=== PATIENT | male | born 1950 | race Two or more races ===

== ENCOUNTER → 2024-03-20 | Outpatient (CLI) | payer OTHER, MEDICAID, SELFPAY ==
[2024-03-20 10:43] LABS: Basophils # (Auto) 0.1 Thou/mm3 (0.0-0.2); Basophils % (Auto) 1 % (0-2.5); Eosinophils # (Auto) 0.2 Thou/mm3 (0.0-0.5); Eosinophils % (Auto) 3 % (0-10); Hematocrit 32.4 % (41.0-53.0); Hemoglobin 10.4 g/dL (13.5-16.0); Immature Granulocytes % (Auto) 1 % (0-0); Immature Granulocytes Auto 0.07 Thou/mm3 (0.00-0.00); Lymphocytes # (Auto) 1.3 Thou/mm3 (1.0-4.8); Lymphocytes % (Auto) 17 % (10-50); Mean Corpuscular HGB Conc 32.1 g/dl (31.0-37.0); Mean Corpuscular Hemoglobin 31.1 pg (25.0-35.0); Mean Corpuscular Volume 97 fL (80-100); Monocytes # (Auto) 1.1 Thou/mm3 (0.0-0.8); Monocytes % (Auto) 14 % (0-12); Neutrophils % (Auto) 65 % (37-80); Nucleated Red Blood Cell % 0 /100 WBC (0); Platelet Count 314 Thou/mm3 (140-440); RDW Standard Deviation 55.9 fL (35.1-43.9); Red Blood Count 3.34 Miln/mm3 (4.50-5.90); White Blood Count 7.7 Thou/mm3 (3.8-10.6)
[2024-03-20 10:56] LABS: Glucose Estimated Average 103 mg/dL (80-131); Hemoglobin A1C 5.2 % Hgb (4.8-6.0)
[2024-03-20 11:19] LABS: Anion Gap 3 (7-16); BUN/Creatinine Ratio 11 Ratio (12-20); Blood Urea Nitrogen 9 mg/dL (9-23); Calcium 8.7 mg/dL (8.3-10.6); Carbon Dioxide 28.8 mMol/L (20.0-31.0); Chloride 104 mMol/L (98-107); Creatinine (Component) 0.8 mg/dL (0.6-1.3); Glucose 89 mg/dL (74-106); Osmolality,Calculated 269 (275-295); Potassium 4.2 mMol/L (3.4-5.1); Sodium 136 mMol/L (136-145); eGFR > 60 See Note
== END | disposition home or self-care (01) ==
PROVIDERS: PCP Physician Assistant; Referring Provider Physician Assistant; Visit Provider Physician Assistant
DX: R73.03 Prediabetes (principal); J44.9 Chronic obstructive pulmonary disease, unspecified; I10 Essential (primary) hypertension
CPT/HCPCS: 36415; 80048; 83036; 85025

== ENCOUNTER → 2024-04-04 | Outpatient (CLI) | payer OTHER, MEDICAID, SELFPAY ==
--- NOTE | 2024-04-04 09:30 | XR_ITS ---
EXAMINATION: PET/CT FUSION SKULL TO THIGH EXAM DATE AND TIME: April 04, 2024 1026 hours Comparison November 16, 2023 INDICATIONS: Diagnosis head and neck cancer post treatment restaging CTDI:vol (mGy) 4.02 DLP: (mGycm) 417.64 PROCEDURE: 16.09 mCi FDG was administered intravenously To allow for distribution and uptake of radiotracer, the patient was allowed to rest quietly in a shielded room. Imaging was performed on an integrated 16-slice PET/CT scanner, with scanning from the skull base to the mid thigh. Serum blood glucose at the time of the injection was measured 97 mg/dL. CT scanning was performed without oral or intravenous contrast material. FINDINGS: Head and Neck: Intensely hypermetabolic laryngeal mass on November 16, 2023 is not currently depicted There is nonspecific week hypermetabolic activity prevertebral at this site and in the posterior larynx Chest: 3 mm, 2 mm, 2 mm pulmonary nodules left upper lobe, 4 mm pulmonary nodule right upper lobe not clearly visualized on the prior PET CT scan Abdomen and Pelvis: There is no anup hypermetabolism in retroperitoneal or pelvic chains. The spleen is normal in size and FDG avidity. Musculoskeletal: Marrow uptake is within normal range. IMPRESSION: Intensely hypermetabolic laryngeal mass on the PET CT scan November 16, 2023 is not clearly depicted currently, however, recommend MRI soft tissue neck follow-up pre and postcontrast Non hypermetabolic pulmonary nodules as above, recommend high-resolution CT chest without contrast follow-up
== END | disposition home or self-care (01) ==
LOC: CDIM 09:13
PROVIDERS: Referring Provider Radiology Therapeutic Radiology; Visit Provider Radiology Therapeutic Radiology
DX: R91.8 Other nonspecific abnormal finding of lung field (principal); C32.8 Malignant neoplasm of overlapping sites of larynx
CPT/HCPCS: 78815; A9552

== ENCOUNTER 2024-04-11 11:33 | Outpatient (RCR) | payer OTHER, MEDICAID, SELFPAY ==
--- NOTE | 2024-04-11 13:49 | CTCFLWUP_ITS ---
Patient: ROSENDO GARCIA : 1950 Page 2 of 2 FOLLOW UP NOTE DATE OF SERVICE: 04/11/2024 NAME: ROSENDO GARCIA ACCOUNT: [id number] : 1950 AGE: 74 REASON FOR VISIT: Follow up INTERVAL HISTORY: Rosendo Garcia is a 74-year-old SPA speaking male with enlarged prostate has the following oncology history. Patient had a left nephrectomy done about 14 years ago at [facility] for kidney cancer. 09/20/2023:: A CT scan of the chest without contrast was obtained to evaluate the cause for coughing a few months duration. Patient has history of 40 pack year smoking. 09/29/2023: Mr. Garcia was seen here at [facility] emergency room because of shortne ss of breath and difficulty swallowing of few days duration. a CT scan of the soft tissue of the nec k with contrast was obtained was obtained CT scan of the neck showed a large soft tissue laryngeal mass Mr. Garcia was transferred to [facility] due to lack of ENT services here in [place]. 09/29/2023: Mr. Garcia had an awake tracheostomy and direct laryngoscopy with biopsies. During the hospital stay at [facility] patient had Chemo-Port placed as well as a PEG tube placement in ant icipation of chemoradiation therapy. HIV test was done. It came back positive. 10/07/2023: CT scan of the neck and chest abdomen pelvis 11/06/2023: Cocci serology positive. 11/12/2023: Mr. Garcia is started on Diflucan 11/16/2023: PET/CT scan 11/21/2023: Mr. Garcia is started on antiretroviral therapy with Biktarvy. 12/04/2023: Mr. 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 Currently on chemoradiation with Taxol and carboplatin as chemo sensitizing agents (12/04/2023??) S/p tracheostomy placement, PEG tube as well as Chemo-Port placement. 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 [id number] smoking history BPH. Newly identified HIV positivity. Started on antiretroviral therapy on 11/21/2023 Left nephrectomy for renal cell carcinoma 14 years ago at [facility]. Serum creatinine 0.9, EGFR more than 60, creatinine clearance 62.7 on 11/06/2023. DATE OF DIAGNOSIS: 09/30/2023 STAGE/TNM: Stage 2 ?T2NOMO TREATMENT HISTORY: Care?Plan Start?Date Cycle Day Intent CISplatin?40?mg/m*2?+?Radiation?Therapy?-?Primary,?Adj,?Rec?#2 10/30/2023 1 7 Palliative Taxol?Carbo?wkly?with?xrt 12/04/2023 1 7 Curative?(primary) OTHER MEDICAL HISTORY/CONDITIONS: SCC larynx - dx 09/30/23 RCC - dx 10 yrs ago HIV Positive Anemia BPH Depression Tracheostomy - 09/30/23 PEG tube placement and PC placemen 10/07/23t Left nephrectomy - 10 yrs ago Repair right tibia/fibula fx - 30 yrs ago ?Clone Other Med Hx? FAMILY HISTORY: Cancer?History:?Denies Patient?denies?family?cancer?history. ?Clone Family Hx? 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 MEDICATIONS: 1. albuterol sulfate - 90 mcg/actuation 2 Puff(s) Every 6 Hours 2. svfaybixg-khpdapup-wfptghb ala - 50-200-25 mg 1 tab Daily 3. Biktarvy - 50-200-25 mg 1 tab Daily 4. Centrum Men - 8 mg iron- 200 mcg-600 mcg 1 tab Daily 5. doxazosin - 2 mg Twice a Day 6. fluconazole - 200 mg 2 tab Daily 7. levocetirizine dihydrochloride - 5 mg Daily 8. Lidocaine Viscous - 2 % 10 mL every 4-6 hrs as needed 9. Sulfamethoprim DS - 800-160 mg 1 tab As directed 10. tramadol - 50 mg Four times a day 11. Vitamin D3 - 2,000 unit 1 Capsule Daily?Palabra Meds? Medications Last Reconciled by Nadine Cobian MA on 04/11/2024 ALLERGIES: No Known Drug Allergies REVIEW OF SYSTEMS: A complete 14-point review of systems was performed and is negative except as noted in interval histo ry. PHYSICAL EXAMINATION:?CloneBlock PE? VITAL SIGNS: Temperature?98, B/P?113/71, Oxygen?Saturation?99% Weight?137.6?lbs PAIN: 0 - No pain ECOG Performance Status: 2 - Symptomatic; ambulatory; capable of self-care; >50% of waking hrs. not i n bed EYE: Conjunctivae is white MOUTH: Oral cavity is moist Tracheostomy in place. Patient also has PEG tube and Chemo-Port. CHEST: Clear to auscultation. No wheezes or rales audible. CARDIAC: Rhythm regular, no murmurs or gallops present. ABDOMEN: Soft. No hepatomegaly. No splenomegaly. EXTREMITIES: No pedal edema or cyanosis. LABORATORY DATA: I have personally reviewed and interpreted each of the patient?s relevant lab tests, abnormal finding s are below: Date 03/20/24 ??WHITE?BLOOD?COUNT?(Thou/mm3) 7.7 ??RED?BLOOD?COUNT?(Miln/mm3) 3.34?L ??HEMOGLOBIN?(gm/dl) 10.4?L ??HEMATOCRIT?(%) 32.4?L ??PLATELET?COUNT?(Thou/mm3) 314 ??NEUTROPHILS?%,?AUTO?(%) 65 ??LYMPH?%,?AUTO?(%) 17 ??NEUTROPHILS,?AUTO?(Thou/mm3) 5.0 IMPRESSION/PLAN: #1 stage lll'lT3, ND, ND?) squamous cell carcinoma ofthe larynx ([id number]). PET/CT scan negative for metastatic disease. Treated with concurrent chemoradiation Advised to continue smoking cessation Advised to follow-up with ENT Advised to follow-up with speech therapy Referral to occupational medicine for rehabilitation Ordered tracheostomy reversal as well as PEG tube removal Reviewed PET CT scan which do not show any hypermetabolism Will get repeat CT scan of the soft tissue neck as well as CT chest to see stability of the lung nodu les as well as to see any residual disease in the neck RTC in 2 months to follow-up #2pulmonary coccidiomycosis currently on Di?ucan started on 11/12/2023. 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 #6 HIV on Phelan therapy. Started on Biktarvy on 11/21/2023. Being followed by primary care physician. #7 left nephrectomy for renal cell carcinoma 14 years ago at [facility]. ORDERS: Imaging orders CBC and CMP ordered for today CT scan neck and soft tissues L as well as CT chest ordered CBC CMP RETURN TO CLINIC: I will see him back in the clinic in 2 months. BILLING AND COMPLIANCE: I reviewed external records from providers outside my specialty as summarized above. I spent a total of 50 minutes on this patient?s care on the day of their visit excluding time spent related to any bi lled procedures. This time includes time spent with the patient as well as time spent documenting in the medical record, reviewing patients records and tests, obtaining history, placing orders, communi cating with other healthcare professionals, counseling the patient, family or caregiver, and/or care coordination for the diagnoses above. Electronically Signed by: Troy Shook MD T: 1:46 PM CC: PCP: Troy Shook Referring: Troy Shook This document was completed utilizing speech recognition software. Grammatical errors, random word in sertions, pronoun errors, and incomplete sentences are an occasional consequence of this system due t o software limitations, ambient noise, and hardware issues. Any formal questions or concerns about th e content, text or information contained within the body of this dictation should be directly address ed to the provider for clarification.
== END 2024-04-30 23:59 | disposition home or self-care (01) ==
LOC: SCTC 11:33
PROVIDERS: PCP Physician Assistant; Referring Provider Internal Medicine Hematology & Oncology; Visit Provider Internal Medicine Hematology & Oncology
DX: C32.8 Malignant neoplasm of overlapping sites of larynx (principal); R91.8 Other nonspecific abnormal finding of lung field; Z21 Asymptomatic human immunodeficiency virus [HIV] infection status; Z79.899 Other long term (current) drug therapy; Z85.528 Personal history of other malignant neoplasm of kidney; Z90.5 Acquired absence of kidney
CPT/HCPCS: 99213; G0463

== ENCOUNTER 2024-04-28 10:34 | Emergency (ER) | payer OTHER, MEDICAID, SELFPAY ==
[2024-04-28] VITALS (7 sets, daily range): BP systolic 128–165; BP diastolic 57–84; PULSE 78–95; RESP 13–17; TEMP 36.8–37.3; O2SAT 93–99; BMI 20.3
--- NOTE | 2024-04-28 11:02 | PC.NURSE ---
BIBA from home for L leg pain (history of gout), family states that it is more swollen than normal. Has a chronic trach and intermittently uses the vent at home (only as needed). PMH: HIV, HTN, COPD, gout, trach, throat cancer (finished chemo in december 2023) . GCS 11 Arabic preferred however he is nonverbal per EMS 118/82 93 HR 98% on room air. 17 RR
--- NOTE | 2024-04-28 11:07 | PC.NURSE ---
Per EMS patient lives alone but his daughter and son alternate days and nights so he always has someone with him.
--- NOTE | 2024-04-28 11:25 | XR_ITS ---
Examination: Duplex scan of the lower extremity, unilateral left complete Date and time of exam: April 28, 2024 at 1201 hrs. Indications: Onset lower leg pain beginning 4 days ago Technique: Duplex scan of the extremity veins using B-mode/grayscale imaging and Doppler spectral analysis and color flow Attention is directed to internal echogenicity, compression and augmentation involving these veins, color flow assessment, spectral analysis Findings: Major deep venous structures in the extremity demonstrate normal course and caliber. There is no evidence of deep vein thrombosis. Normal color flow and spectral analysis Impression: Negative for DVT..
--- NOTE | 2024-04-28 11:26 | EDNOTE_ITS ---
ED General RME/HPI General Stated complaint: leg pain Time Seen by Provider: 04/28/24 11:17 Arrival date/time: 04/28/24 10:34 CC: Left lower extremity pain HPI ongoing for 4 days worsening. The patient has a significant history of laryngeal cancer was trached, nonverbal, but is active mouthing words, is also hard of hearing. Patient denies fever or left upper leg pain denies any right lower extremity pain. No other complaints at this time. Related Data Home Medications ?Medication ?Instructions ?Recorded ?Confirmed tamsulosin 0.4 mg capsule (Flomax) 0.4 mg PO DAILY ##0 02/16/10 01/23/24 cholecalciferol (vitamin D3) 50 50 mcg PO QDAY 11/01/23 01/23/24 mcg (2,000 unit) capsule (Vitamin D3) ferrous sulfate 325 mg (65 mg 325 mg PO QDAY 11/01/23 01/23/24 iron) tablet bictegravir 50 mg-emtricitabine 1 tab PO QDAY 11/30/23 01/23/24 200 mg-tenofovir alafenam 25 mg tablet (Biktarvy) cetirizine 10 mg tablet 10 mg PO BID 01/23/24 01/26/24 ondansetron HCl 8 mg tablet 8 mg PO TID 01/23/24 01/26/24 polyethylene glycol 3350 17 17 g feeding tube 1XD 01/23/24 01/26/24 gram/dose oral powder prochlorperazine maleate 10 mg 10 mg feeding tube TID 01/23/24 01/26/24 tablet triamcinolone acetonide 0.1 % 1 applic topical PRN PRN 01/23/24 01/26/24 topical cream (Triderm) Breakthrough Pain, Severe Previous Rx's ?Medication ?Instructions ?Recorded fluconazole 200 mg tablet 400 mg (2 x 200 mg) PO QDAY 30 02/02/24 days #60 tabs lidocaine HCl 2 % mucosal solution 10 ml PO TIDWM 30 days #900 mL 02/02/24 albuterol sulfate 90 mcg/actuation 1 puff inhalation QID PRN 02/11/24 aerosol inhaler shortness of breath or wheezing #6.7 grams sulfamethoxazole 800 1 tab PO BID 7 days #14 tabs 04/28/24 mg-trimethoprim 160 mg tablet (Bactrim DS) Allergies Allergy/AdvReac Type Severity Reaction Status Date / Time No Known Allergies Allergy Verified 01/22/24 09:45 Review of Systems Review of Systems Narrative Review of Systems: GEN: No fever, no chills, no weight loss EYES: No discharge, no visual changes, no pain HEENT: No ear pain, no congestion, no sore throat PULM: No shortness of breath, no cough, no congestion CV: No chest pain, no dyspnea on exertion, no palpitations GI: No nausea, no vomiting, no diarrhea, no pain, no constipation : No frequency, no urgency, no dysuria MUSC/SKEL: No joint pain, no back pain,+ lower extremity pain SKIN: No rash PSYCH: No hallucinations, no depression HEME/LYMPH: No easy bleeding or bruising tendencies NEURO: No weakness, no headache Past Medical History Past Medical History NEUROLOGIC: Negative Seizures CARDIAC: Negative Cardiac Disorders or Congestive Heart Failure RESPIRATORY: Positive Asthma; Negative Chronic Obstructive Pulmonary Disease (COPD) GENITOURINARY: Positive Renal Disease ENDOCRINE: Negative Diabetes Mellitus Type 1 or Diabetes Mellitus Type 2 HEMATOLOGIC: Negative Sickle Cell Disease OTHER HISTORY: Negative Blood Transfusions, Blood Transfusion Reaction or Anesthesia Reactions Social History SMOKING STATUS: Former smoker SECOND HAND EXPOSURE: No ED Exam Narrative Physical exam: [General: In mild discomfort not in any acute distress Head normocephalic HEENT: Within acceptable limits Neck is supple nontender trach site is somewhat clean. The patient has no cover over the trach opening. Chest equal chest rise nontender to palpation Respiratory: Clear to auscultation no wheezes crackles or rubs CV: Rate rhythm is regular no murmurs rubs or clicks Abdomen is soft nontender no masses positive bowel sounds all 4 quadrants Back: No CVA tenderness no spinous process tenderness from cervical spine thoracic and lumbar spine Skin: Intact no petechiae rash induration ulceration or crepitus Extremities: Left lower extremity patient has no pain with palpation and thigh of the left lower extremity, there is pain in the dorsum of the foot the ankle, with nonpitting edema. Decreased range of motion of the ankle secondary to pain. No calf tenderness. Moving all other extremities against resistance cap refill less than 2 seconds neurosensory intact Neuro: Awake alert oriented x3 Glascow coma 15 no focal deficits] Course Quality Measures none Orders Category Date Time Status US venous doppler LE LT Stat Exams 04/28/24 11:25 Completed CBC Stat Lab 04/28/24 11:48 Completed CMP [Comprehensive Metabolic Panel] Stat Lab 04/28/24 11:48 Completed Tracheostomy Tube Management NEEDED RT 04/28/24 14:05 Active Vital Signs Vital signs: Vital Signs Temperature 98.3 F 04/28/24 10:37 Pulse Rate 78 04/28/24 10:37 Respiratory Rate 17 04/28/24 10:37 Blood Pressure 165/82 H 04/28/24 10:37 Pulse Oximetry (%) 96 04/28/24 10:37 Oxygen Delivery Method Room Air 04/28/24 10:37 [facility] Patient data External records reviewed:: [facility] previous records and EMS form Clinical information provided by:: patient and EMS Social determinants that could affect healthcare access:: none Patient has the following chronic illnesses:: Trach laryngeal cancer How is presenting disease/condition affected by chronic disease/condition?: u neffected by Evaluation data The following diagnostics were reviewed and interpreted by me:: lab results and radiology exam(s) Lab and/or radiology exams considered but not ordered:: CBC shows a mild bump in the WBCs at 10.9 no other anemia thrombocytopenia CMP shows mildly elevated glucose level no other significant electrolyte imbalances renal impairment transaminitis or T. bili elevation Ultrasound of the leg is negative. Interpretation Summary: I suspect this is early cellulitis in the leg. There is minimal tenderness but the patient does complain of pain in the dorsum of the sole of the foot as well. Very mild erythema not warm to touch. Medications Medications considered but not ordered:: None Medication administrations:: None Consultations Consultation(s) initiated? (list below): No Diagnosis Differential Diagnosis ED Complaint MDM: DVT arterial insufficiency cellulitis Most likely diagnosis given after review of the tests above:: Leg cellulitis Admission Indicated Admission indicated?: not indicated Explain why admission is indicated or not indicated:: Stable for outpatient follow-up Admission Request Was there a request for admission?: No Disposition Plan Disposition Plan: Discharge Discharge Attestation Discharge Attestation: The patient and all family members were given an opportunity to ask questions and understood the discharge instructions. Discharge instructions specifically effects, indications for sooner follow up or return to the emergency department, and the expected course of current diagnosis. Patient condition: Stable Medical Decision Making Differential Diagnosis Differential Diagnosis: DVT arterial insufficiency cellulitis Lab Data 04/28/24 11:48 04/28/24 11:48 Labs: Lab Results 04/28/24 Range/Units 11:48 WBC 10.8 H (3.8-10.6) Thou/mm3 RBC 3.55 L (4.50-5.90) Miln/mm3 Hgb 11.2 L (13.5-16.0) g/dL Hct 33.9 L (41.0-53.0) % MCV 96 (80-100) fL MCH 31.5 (25.0-35.0) pg MCHC 33.0 (31.0-37.0) g/dl RDW Std Deviation 47.8 H (35.1-43.9) fL Plt Count 274 D (140-440) Thou/mm3 Neut % (Auto) 69 (37-80) % Lymph % (Auto) 10 (10-50) % Camp % (Auto) 20 H (0-12) % Eos % (Auto) 1 (0-10) % Baso % (Auto) 0 (0-2.5) % Neut # (Auto) 7.5 (1.8-7.7) Thou/mm3 Lymph # (Auto) 1.0 (1.0-4.8) Thou/mm3 Camp # (Auto) 2.1 H (0.0-0.8) Thou/mm3 Eos # (Auto) 0.1 (0.0-0.5) Thou/mm3 Baso # (Auto) 0.0 (0.0-0.2) Thou/mm3 Immature Gran # (Auto) 0.06 H (0.00-0.00) Thou/mm3 Absolute Nucleated RBC 0.00 (0.00-0.00) Thou/mm3 Immature Gran % 1 H (0-0) % Nucleated RBC % 0 (0) /100 WBC Sodium 131 L (136-145) mMol/L Potassium 4.8 (3.4-5.1) mMol/L Chloride 96 L (98-107) mMol/L Carbon Dioxide 26.6 (20.0-31.0) mMol/L Anion Gap 8 (7-16) BUN 16 (9-23) mg/dL Creatinine 0.9 (0.6-1.3) mg/dL Estim Creat Clear Calc 61.0 (>60) mL/min eGFR > 60 (60 - ) See Note BUN/Creatinine Ratio 18 (12-20) Ratio Glucose 103 (74-106) mg/dL Calculated Osmolality 263 L (275-295) Calcium 9.6 (8.3-10.6) mg/dL Corrected Calcium 9.6 (8.5-10.1) mg/dL Total Bilirubin 0.5 (0.3-1.2) mg/dL AST 24 (0-34) U/L ALT 15 (10-49) U/L Alkaline Phosphatase 126 H (46-116) U/L Total Protein 7.5 (5.7-8.2) gm/dL Albumin 4.1 (3.4-4.8) gm/dL Globulin 3.4 (2.3-3.5) gm/dL Albumin/Globulin Ratio 1.2 (1.2-2.2) Discharge Plan Plan Patient Disposition: HOME (Self Care) Patient condition on transfer: Stable Prescriptions/Referrals Prescriptions/Med Rec: New sulfamethoxazole-trimethoprim [Bactrim DS] 800-160 mg tablet 1 tab PO BID 7 Days Qty: 14 0RF No Action Biktarvy 50-200-25 mg tablet 1 tab PO QDAY tamsulosin [Flomax] 0.4 MG capsule,extended release 24hr 0.4 mg PO DAILY Qty: 0 ferrous sulfate 325 mg (65 mg iron) Tablet 325 mg PO QDAY cholecalciferol (vitamin D3) [Vitamin D3] 50 mcg (2,000 unit) Capsule 50 mcg PO QDAY cetirizine 10 mg tablet 10 mg PO BID Patient Comments: TOME JAVON TABLETA POR V A ORAL DOS VECES AL D A ondansetron HCl 8 mg tablet 8 mg PO TID Patient Comments: TOME JAVON TABLETA POR V A ORAL BERNY VECES AL D A CUANDO SEA NECESARIO PARA NAUSEA prochlorperazine maleate 10 mg tablet 10 mg feeding tube TID triamcinolone acetonide [Triderm] 0.1 % cream 1 applic TOPICAL PRN PRN (Reason: Breakthrough Pain, Severe) Patient Comments: APLIQUE AL CHRISTO AFECTADA DOS VECES AL D A (NO EN EL MARISELA) polyethylene glycol 3350 17 gram/dose powder 17 g feeding tube 1XD Patient Comments: 17 GM IN LIQUID 1 TIME A DAY fluconazole 200 mg tablet 400 mg PO QDAY 30 Days Qty: 60 2RF lidocaine HCl 2 % Solution 10 ml PO TIDWM 30 Days Qty: 900 2RF albuterol sulfate 90 mcg/actuation HFA aerosol inhaler 1 puff inhalation QID PRN (Reason: shortness of breath or wheezing) Qty: 6.7 0RF Referrals: No Primary/Family,Physician [Primary Care Provider] - In 1 week Problem List Clinical Impression: Cellulitis of left leg Patient/Caregiver Discharge Instructions Other Activity Instructions:: Take the medications as prescribed if there is worsening of symptoms such as increased redness streaks or fever return immediately to the emergency room for reevaluation. Take pictures of the leg once a day for the next 4 to 5 days per Education Materials: ED Cellulitis Print Language: Swiss Stand Alone Forms: Eleni Award Info., Patient Portal Info Letter PA/BUILDING SERVICES SUPERVISOR Supervising Physician PA/BUILDING SERVICES SUPERVISOR Supervising Physician: Ad Smith ENP
[2024-04-28 12:19] LABS: Basophils % (Auto) 0 % (0-2.5); Eosinophils # (Auto) 0.1 Thou/mm3 (0.0-0.5); Eosinophils % (Auto) 1 % (0-10); Hematocrit 33.9 % (41.0-53.0); Hemoglobin 11.2 g/dL (13.5-16.0); Immature Granulocytes % (Auto) 1 % (0-0); Immature Granulocytes Auto 0.06 Thou/mm3 (0.00-0.00); Lymphocytes % (Auto) 10 % (10-50); Mean Corpuscular Hemoglobin 31.5 pg (25.0-35.0); Mean Corpuscular Volume 96 fL (80-100); Monocytes # (Auto) 2.1 Thou/mm3 (0.0-0.8); Monocytes % (Auto) 20 % (0-12); Neutrophils # (Auto) 7.5 Thou/mm3 (1.8-7.7); Neutrophils % (Auto) 69 % (37-80); Nucleated Red Blood Cell % 0 /100 WBC (0); Platelet Count 274 Thou/mm3 (140-440); RDW Standard Deviation 47.8 fL (35.1-43.9); Red Blood Count 3.55 Miln/mm3 (4.50-5.90); White Blood Count 10.8 Thou/mm3 (3.8-10.6)
[2024-04-28 12:25] LABS: Alanine Aminotransferase 15 U/L (10-49); Albumin, Serum 4.1 gm/dL (3.4-4.8); Albumin/Globulin Ratio 1.2 (1.2-2.2); Alkaline Phosphatase 126 U/L (46-116); Anion Gap 8 (7-16); Aspartate Amino Transferase 24 U/L (0-34); BUN/Creatinine Ratio 18 Ratio (12-20); Bilirubin,Total 0.5 mg/dL (0.3-1.2); Blood Urea Nitrogen 16 mg/dL (9-23); Calcium 9.6 mg/dL (8.3-10.6); Calcium (Corrected) 9.6 mg/dL (8.5-10.1); Carbon Dioxide 26.6 mMol/L (20.0-31.0); Chloride 96 mMol/L (98-107); Creatinine (Component) 0.9 mg/dL (0.6-1.3); Globulin 3.4 gm/dL (2.3-3.5); Glucose 103 mg/dL (74-106); Osmolality,Calculated 263 (275-295); Potassium 4.8 mMol/L (3.4-5.1); Sodium 131 mMol/L (136-145); Total Protein 7.5 gm/dL (5.7-8.2); eGFR > 60 See Note
--- NOTE | 2024-04-28 13:56 | PD.EDADULT ---
ED General RME/HPI General Stated complaint: leg pain Time Seen by Provider: 04/28/24 11:17 Arrival date/time: 04/28/24 10:34 RME / HPI RME / HPI narrative: 74-year-old male with a history of CVA unclear as to residual deficits (per he has no residual deficits) where while in middle conversation around 11:20 AM he had difficulty speaking with increased slurred speech. Increasing slurring the speech was also witnessed by EMS prior to arrival as a stroke activation. He denies weakness of his upper and lower extremities. Related Data Home Medications ?Medication ?Instructions ?Recorded ?Confirmed tamsulosin 0.4 mg capsule (Flomax) 0.4 mg PO DAILY ##0 02/16/10 01/23/24 cholecalciferol (vitamin D3) 50 50 mcg PO QDAY 11/01/23 01/23/24 mcg (2,000 unit) capsule (Vitamin D3) ferrous sulfate 325 mg (65 mg 325 mg PO QDAY 11/01/23 01/23/24 iron) tablet bictegravir 50 mg-emtricitabine 1 tab PO QDAY 11/30/23 01/23/24 200 mg-tenofovir alafenam 25 mg tablet (Biktarvy) cetirizine 10 mg tablet 10 mg PO BID 01/23/24 01/26/24 ondansetron HCl 8 mg tablet 8 mg PO TID 01/23/24 01/26/24 polyethylene glycol 3350 17 17 g feeding tube 1XD 01/23/24 01/26/24 gram/dose oral powder prochlorperazine maleate 10 mg 10 mg feeding tube TID 01/23/24 01/26/24 tablet triamcinolone acetonide 0.1 % 1 applic topical PRN PRN 01/23/24 01/26/24 topical cream (Triderm) Breakthrough Pain, Severe Previous Rx's ?Medication ?Instructions ?Recorded fluconazole 200 mg tablet 400 mg (2 x 200 mg) PO QDAY 30 02/02/24 days #60 tabs lidocaine HCl 2 % mucosal solution 10 ml PO TIDWM 30 days #900 mL 02/02/24 albuterol sulfate 90 mcg/actuation 1 puff inhalation QID PRN 02/11/24 aerosol inhaler shortness of breath or wheezing #6.7 grams Allergies Allergy/AdvReac Type Severity Reaction Status Date / Time No Known Allergies Allergy Verified 01/22/24 09:45 Course Orders Category Date Time Status US venous doppler LE LT Stat Exams 04/28/24 11:25 Completed CBC Stat Lab 04/28/24 11:48 Completed CMP [Comprehensive Metabolic Panel] Stat Lab 04/28/24 11:48 Completed Vital Signs Vital signs: Vital Signs Temperature 98.3 F 04/28/24 10:37 Pulse Rate 78 04/28/24 10:37 Respiratory Rate 17 04/28/24 10:37 Blood Pressure 165/82 H 04/28/24 10:37 Pulse Oximetry (%) 96 04/28/24 10:37 Oxygen Delivery Method Room Air 04/28/24 10:37 Medical Decision Making Lab Data 04/28/24 11:48 04/28/24 11:48 Labs: Lab Results 04/28/24 Range/Units 11:48 WBC 10.8 H (3.8-10.6) Thou/mm3 RBC 3.55 L (4.50-5.90) Miln/mm3 Hgb 11.2 L (13.5-16.0) g/dL Hct 33.9 L (41.0-53.0) % MCV 96 (80-100) fL MCH 31.5 (25.0-35.0) pg MCHC 33.0 (31.0-37.0) g/dl RDW Std Deviation 47.8 H (35.1-43.9) fL Plt Count 274 D (140-440) Thou/mm3 Neut % (Auto) 69 (37-80) % Lymph % (Auto) 10 (10-50) % Meigs % (Auto) 20 H (0-12) % Eos % (Auto) 1 (0-10) % Baso % (Auto) 0 (0-2.5) % Neut # (Auto) 7.5 (1.8-7.7) Thou/mm3 Lymph # (Auto) 1.0 (1.0-4.8) Thou/mm3 Meigs # (Auto) 2.1 H (0.0-0.8) Thou/mm3 Eos # (Auto) 0.1 (0.0-0.5) Thou/mm3 Baso # (Auto) 0.0 (0.0-0.2) Thou/mm3 Immature Gran # (Auto) 0.06 H (0.00-0.00) Thou/mm3 Absolute Nucleated RBC 0.00 (0.00-0.00) Thou/mm3 Immature Gran % 1 H (0-0) % Nucleated RBC % 0 (0) /100 WBC Sodium 131 L (136-145) mMol/L Potassium 4.8 (3.4-5.1) mMol/L Chloride 96 L (98-107) mMol/L Carbon Dioxide 26.6 (20.0-31.0) mMol/L Anion Gap 8 (7-16) BUN 16 (9-23) mg/dL Creatinine 0.9 (0.6-1.3) mg/dL Estim Creat Clear Calc 61.0 (>60) mL/min eGFR > 60 (60 - ) See Note BUN/Creatinine Ratio 18 (12-20) Ratio Glucose 103 (74-106) mg/dL Calculated Osmolality 263 L (275-295) Calcium 9.6 (8.3-10.6) mg/dL Corrected Calcium 9.6 (8.5-10.1) mg/dL Total Bilirubin 0.5 (0.3-1.2) mg/dL AST 24 (0-34) U/L ALT 15 (10-49) U/L Alkaline Phosphatase 126 H (46-116) U/L Total Protein 7.5 (5.7-8.2) gm/dL Albumin 4.1 (3.4-4.8) gm/dL Globulin 3.4 (2.3-3.5) gm/dL Albumin/Globulin Ratio 1.2 (1.2-2.2) Discharge Plan Prescriptions/Referrals Prescriptions/Med Rec: No Action Biktarvy 50-200-25 mg tablet 1 tab PO QDAY tamsulosin [Flomax] 0.4 MG capsule,extended release 24hr 0.4 mg PO DAILY Qty: 0 ferrous sulfate 325 mg (65 mg iron) Tablet 325 mg PO QDAY cholecalciferol (vitamin D3) [Vitamin D3] 50 mcg (2,000 unit) Capsule 50 mcg PO QDAY cetirizine 10 mg tablet 10 mg PO BID Patient Comments: LISAE JAVON TABLETA POR V A ORAL DOS VECES AL D A ondansetron HCl 8 mg tablet 8 mg PO TID Patient Comments: TOME JAVON TABLETA POR V A ORAL BERNY VECES AL D A CUANDO SEA NECESARIO PARA NAUSEA prochlorperazine maleate 10 mg tablet 10 mg feeding tube TID triamcinolone acetonide [Triderm] 0.1 % cream 1 applic TOPICAL PRN PRN (Reason: Breakthrough Pain, Severe) Patient Comments: APLIQUE AL CHRISTO AFECTADA DOS VECES AL D A (NO EN EL MARISELA) polyethylene glycol 3350 17 gram/dose powder 17 g feeding tube 1XD Patient Comments: 17 GM IN LIQUID 1 TIME A DAY fluconazole 200 mg tablet 400 mg PO QDAY 30 Days Qty: 60 2RF lidocaine HCl 2 % Solution 10 ml PO TIDWM 30 Days Qty: 900 2RF albuterol sulfate 90 mcg/actuation HFA aerosol inhaler 1 puff inhalation QID PRN (Reason: shortness of breath or wheezing) Qty: 6.7 0RF Referrals: No Primary/Family,Physician [Primary Care Provider] - In 1 week Patient/Caregiver Discharge Instructions Print Language: Sinhala
[2024-04-28] MEDS: KETOROLAC INJ 60 MG/2 ML VIAL 30 MG IM (18:17)
== END 2024-04-28 18:30 | disposition home or self-care (01) ==
PROVIDERS: Registered Nurse General Practice; Emergency Provider Emergency Medicine
DX: L03.116 Cellulitis of left lower limb (principal)
CPT/HCPCS: 36415; 80053; 85025; 93971; 96372; 99284; J1885

== ENCOUNTER 2024-05-31 08:55 | Outpatient (RCR) | payer OTHER, MEDICAID, SELFPAY | END 2024-05-31 23:59 | disposition home or self-care (01) | LOC: SCTC 08:55 | PROVIDERS: PCP Physician Assistant; Referring Provider Internal Medicine Hematology & Oncology; Visit Provider Internal Medicine Hematology & Oncology | DX: Z45.2 Encounter for adjustment and management of vascular access device (principal); C32.8 Malignant neoplasm of overlapping sites of larynx; Z92.3 Personal history of irradiation; Z93.0 Tracheostomy status; Z87.891 Personal history of nicotine dependence; N40.0 Benign prostatic hyperplasia without lower urinary tract symptoms; Z21 Asymptomatic human immunodeficiency virus [HIV] infection status; Z79.899 Other long term (current) drug therapy; Z90.5 Acquired absence of kidney; Z85.528 Personal history of other malignant neoplasm of kidney | CPT/HCPCS: 96523; A4216; J1642 ==

== ENCOUNTER → 2024-06-03 | Outpatient (CLI) | payer OTHER, MEDICAID, SELFPAY ==
--- NOTE | 2024-06-03 13:00 | XR_ITS ---
Examination: CT soft tissue neck, with intravenous contrast. 2-D coronal reconstructions. 2-D sagittal reconstructions. Date and time of exam :June 03, 2024 1349 hours Comparison September 29, 2023 INDICATIONS: Laryngeal mass 31 x 19 x [address] soft tissue neck September 29, 2023. CTDI: vol (mGy):11.9 DLP: (mGycm):350 Technique: 1.25 mm axial sections of the neck of the obtained. Coronal and sagittal reconstructions have been obtained. Intravenous contrast administered 60 cc Isovue-370. Low dose protocols were performed. One or more of the following dose reduction techniques were used; automated exposure control, adjustment of the mA and/or KV according to patient size, use of iterative reconstruction technique. Findings: Maxillary antra are clear Symmetrical nasopharynx oropharynx No supraglottic mass Subcentimeter carotid triangle lymph nodes Diffuse enlargement of the larynx with significant narrowing of the airway, axial image 61 Both true and false vocal cords appears thickened Subglottic region is open with tracheostomy tube IMPRESSION: Diffuse soft tissue mass involving the true and false vocal cords with severe impingement upon the airway Consider MRI soft tissue neck pain post contrast follow-up
--- NOTE | 2024-06-03 13:30 | XR_ITS ---
Examination: CT chest with intravenous contrast 2-D sagittal and coronal reconstructions Exam date and time: June 03, 2024 1349 hours Comparison September 20, 2023 INDICATIONS: Laryngeal tumor, restaging post treatment, multiple pulmonary nodules on CT chest September 20, 2023 CTDI:vol (mGy) 12.5 DLP: (mGycm) 420 Technique: Multiple axial sections of the thorax have been obtained. Sections have been obtained, 3 mm slice thickness. Mediastinal and lung density settings have been obtained. Intravenous contrast administered, 60 cc Isovue-370. 2-D sagittal, coronal images obtained. Low dose protocols were performed. One or more of the following dose reduction techniques were used; automated exposure control, adjustment of the mA and/or KV according to patient size, use of iterative reconstruction technique. Findings: Tracheostomy tube tip 4.5 cm above jasper Ascending thoracic aortic aneurysm transverse dimension 4.3 cm No pulmonary artery emboli No paratracheal tracheobronchial or bronchopulmonary adenopathy Pulmonary nodule left upper lobe has increased in size from 3 mm to 6 mm Pulmonary nodule 2 mm in the left upper lobe has increased in size to 4 mm Pulmonary nodule right lower lobe has increased in size to 12 mm compared to 5 mm No interval pneumonia or pulmonary edema No interval visualized liver or splenic lesion Absent gallbladder No pancreatic mass Indeterminate 15 mm left adrenal nodule IMPRESSION: Mild aneurysmal dilatation ascending thoracic aorta Progression of pulmonary nodular metastatic disease Indeterminate left adrenal nodule, consider MRI abdomen adrenal glands follow-up pre and postcontrast
== END | disposition home or self-care (01) ==
LOC: SCAT 12:53
PROVIDERS: PCP Physician Assistant; Referring Provider Internal Medicine Hematology & Oncology; Visit Provider Internal Medicine Hematology & Oncology
DX: I71.21 Aneurysm of the ascending aorta, without rupture (principal); C78.00 Secondary malignant neoplasm of unspecified lung; C32.8 Malignant neoplasm of overlapping sites of larynx
CPT/HCPCS: 70491; 71260; A4649; Q9967

== ENCOUNTER 2024-06-10 09:01 | Emergency (ER) | payer OTHER, MEDICAID, SELFPAY ==
--- NOTE | 2024-06-10 09:12 | XR_ITS ---
Examination: AP chest single view Technique one AP portable semiupright chest single view Exam date and time: June 10, 2024 0917 hours INDICATIONS: Shortness of breath beginning 3:00 AM this morning FINDINGS: COPD with moderate hyperexpansion Normal heart size Tracheostomy tube tip 5.4 cm above jasper Right internal jugular Port-A-Cath tip SVC No pneumonia or pulmonary edema IMPRESSION: COPD with moderate hyperexpansion No pneumonia or pulmonary edema
--- NOTE | 2024-06-10 09:16 | EDNOTE_ITS ---
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 Patient primarily understands Vietnamese but is mostly nonverbal due to trach. Spoke with son at the bedside who reports that patient has not had any other associated symptoms such as fever, chills, sweats, nausea, vomiting, diarrhea, chest pain, or abdominal pain. No recent known sick contacts. Patient used to have a PEG tube but has recently had it removed, is able to take soft and liquid foods PO. Patient is seen by home health RN for abdominal dressing changes. Patient lives alone mostly but has other son sometimes stay during nights. Related Data Home Medications ?Medication ?Instructions ?Recorded ?Confirmed tamsulosin 0.4 mg capsule (Flomax) 0.4 mg PO DAILY ##0 02/16/10 01/23/24 cholecalciferol (vitamin D3) 50 50 mcg PO QDAY 01/23/24 mcg (2,000 unit) capsule (Vitamin D3) ferrous sulfate 325 mg (65 mg 325 mg PO QDAY 11/01/23 01/23/24 iron) tablet bictegravir 50 mg-emtricitabine 1 tab PO QDAY 11/30/23 01/23/24 200 mg-tenofovir alafenam 25 mg tablet (Biktarvy) cetirizine 10 mg tablet 10 mg PO BID 01/23/24 ondansetron HCl 8 mg tablet 8 mg PO TID 01/23/2401/25 polyethylene glycol 3350 17 17 g feeding tube 1XD 12/3101/26/24 gram/dose oral powder prochlorperazine maleate 10 mg 10 mg feeding tube TID 01/23/24 01/26/24 tablet triamcinolone acetonide 0.1 % 1 applic topical PRN PRN 01/23/24 01/26/24 topical cream (Triderm) Breakthrough Pain, Severe Previous Rx's ?Medication ?Instructions ?Recorded fluconazole 200 mg tablet 400 mg (2 x 200 mg) PO QDAY 30 02/02/24 days #60 tabs lidocaine HCl 2 % mucosal solution 10 ml PO TIDWM 30 d ays #900 mL 02/02/24 albuterol sulfate 90 mcg/actuation 1 puff inhalation Q ID PRN 02/11/24 aerosol inhaler shortness of breath or wheez ing #6.7 grams azithromycin 250 mg tablet See Rx Instructions PO .COM PLEX 06/10/24 (Zithromax Z-Massimo) COPD exacerbation #6 tabs Allergies Allergy/AdvReac Type Severity Reaction Status Date / Time No Known Allergies Allergy Verified 06/10/24 09:03 Past Medical History Past Medical History Comments PMH COMMENT: Past Medical History: HIV on HAART therapy, coccidioidomycosis, 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 Elderly and chronically ill appearing, has chronic tracheostomy. HEENT: Normocephalic, atraumatic, mucous membranes moist. Patient has chronic trach collar, yellow thick secretions around trach site. Heart: Regular rate and rhythm, no murmurs. Lungs: Bilateral wet transmitted upper respiratory sounds. Abdomen: Soft, nondistended, nontender, positive bowel sounds. ?No guarding or rebound tenderness. Neurologic: Alert and oriented x3, no gross neurological deficit, and patient able to move all 4 extremities. Extremities: No edema. Skin: No rash or ecchymoses. Course Quality Measures none Orders Category Date Time Status Bedside COVID-19 Antigen Test NOW Care 06/10/24 09:32 Completed Bedside Influenza A&B Antigen Test NOW Care 06/10/24 09:33 Completed CXRP [XR chest 1V portable] Stat Exams 06/10/24 09:12 Completed BNP [B-Type Natriuretic Peptide] Stat Lab 06/10/24 09:47 Completed Blood Culture (Lab) Stat Lab 06/10/24 09:58 Received CBC Stat Lab 06/10/24 09:47 Completed CMP [Comprehensive Metabolic Panel] Stat Lab 06/10/24 09:47 Completed Troponin I Stat Lab 06/10/24 09:47 Completed ALBUTEROL RT 0.5ml [Proventil Rt 0.5ml] Med 06/10/24 10:03 Discontinued 10 mg INH X1 ONE ALBUTEROL RT 5 ml [Proventil Rt 5 ml] Med 06/10/24 09:14 Discontinued 10 mg INH X1 ONE Ipratropium Holcomb Rt Brianda [Atrovent Rt Brianda] Med 06/10/24 10:03 Discontinued 1 mg INH X1 ONE Sodium Chloride Rt Brianda 0.9% [NS Rt Brianda 0.9%] Med 06/10/24 10:03 Discontinued 3 ml INH PRN PRN Sodium Chloride Rt Brianda 10% [NS Rt Brianda 10%] Med 06/10/24 09:32 Discontinued 5 ml INH X1 ONE Vital Signs Vital signs: Vital Signs Temperature 97.8 F 06/10/24 09:28 Pulse Rate 94 06/10/24 09:28 Respiratory Rate 20 06/10/24 09:28 Blood Pressure 137/104 H 06/10/24 09:28 Pulse Oximetry (%) 96 06/10/24 09:28 Oxygen Delivery Method Room Air 06/10/24 09:28 Shortness of Breath / Dyspnea MDM Narrative MDM Narrative:: CXR was reviewed and showed no new pneumonia according to my interpretation. CBC and CMP were reviewed and showed normal labs according to limits. COVID and flu were negative. Patient feeling better after 1 hour long albuterol breathing treatment. Patient will be discharged on 5 day course of azithromycin for COPD exacerbation. Patient data External records reviewed:: [facility] previous records Clinical information provided by:: patient and family Social determinants that could affect healthcare access:: none Patient has the following chronic illnesses:: As above How is presenting disease/condition affected by chronic disease/condition?: exacerbated by Evaluation data The following diagnostics were reviewed and interpreted by me:: lab results and radiology exam(s) Lab and/or radiology exams considered but not ordered:: Ordered Interpretation Summary: As above Medications / Prescriptions Medications or Prescriptions considered but not ordered:: Given Medication administrations:: Medication Administration History Discontinued Medications Albuterol (Albuterol Rt 25 Mg/5 Ml Nebu) 10 mg INH X1 ONE Stop: 06/10/24 09:15 Albuterol (Albuterol Rt 2.5 Mg/0.5 Ml Nebu) 10 mg INH X1 ONE Stop: 06/10/24 10:04 Last Admin: 06/10/24 10:10 Dose: 10 mg Documented By: GEOVANI Ipratropium Holcomb (Ipratropium Rt 0.5 Mg/ 2.5 Ml Nebu) 1 mg INH X1 ONE Stop: 06/10/24 10:04 Last Admin: 06/10/24 10:10 Dose: 1 mg Documented By: GEOVANI Sodium Chloride (Sodium Chloride Rt 10% 15 Ml Nebu) 5 ml INH X1 ONE Stop: 06/10/24 09:33 Sodium Chloride (Sodium Chloride Rt Brianda 0.9% 3 Ml Nebu) 3 ml INH PRN PRN PRN Reason: SOLN Stop: 07/10/24 10:02 Given Consultations Consultation(s) initiated? (list below): No Diagnosis Shortness of Breath Differential Diagnosis: acute exacerbation of chronic obstructive airways disease, community acquired pneumonia and asthma with exacerbation Most likely diagnosis given after review of the tests above:: Acute COPD exacerbation Admission Indicated Admission indicated?: not indicated Admission Request Was there a request for admission?: No Disposition Plan Disposition Plan: Discharge Discharge Attestation Discharge Attestation: The patient and all family members were given an opportunity to ask questions and understood the discharge instructions. Discharge instructions specifically effects, indications for sooner follow up or return to the emergency department, and the expected course of current diagnosis. Patient condition: Stable Discharge Plan Plan Patient Disposition: HOME (Self Care) Patient condition on transfer: Stable Prescriptions/Referrals Prescriptions/Med Rec: New azithromycin [Zithromax Z-Massimo] 250 mg tablet See Rx Instructions .ROUTE .COMPLEX Qty: 6 0RF Rx Instructions: For 250 mg dose pack: take 500 mg today (day 1), then 250 mg for 4 days (days 2-5) No Action Biktarvy 50-200-25 mg tablet 1 tab PO QDAY tamsulosin [Flomax] 0.4 MG capsule,extended release 24hr 0.4 mg PO DAILY Qty: 0 ferrous sulfate 325 mg (65 mg iron) Tablet 325 mg PO QDAY cholecalciferol (vitamin D3) [Vitamin D3] 50 mcg (2,000 unit) Capsule 50 mcg PO QDAY cetirizine 10 mg tablet 10 mg PO BID Patient Comments: REEMA LEE POR V A ORAL DOS VECES AL D A ondansetron HCl 8 mg tablet 8 mg PO TID Patient Comments: TOME JAVON TABLETA POR V A ORAL BERNY VECES AL D A CUANDO SEA NECESARIO PARA NAUSEA prochlorperazine maleate 10 mg tablet 10 mg feeding tube TID triamcinolone acetonide [Triderm] 0.1 % cream 1 applic TOPICAL PRN PRN (Reason: Breakthrough Pain, Severe) Patient Comments: APLIQUE AL CHRISTO AFECTADA DOS VECES AL D A (NO EN EL MARISELA) polyethylene glycol 3350 17 gram/dose powder 17 g feeding tube 1XD Patient Comments: 17 GM IN LIQUID 1 TIME A DAY fluconazole 200 mg tablet 400 mg PO QDAY 30 Days Qty: 60 2RF lidocaine HCl 2 % Solution 10 ml PO TIDWM 30 Days Qty: 900 2RF albuterol sulfate 90 mcg/actuation HFA aerosol inhaler 1 puff inhalation QID PRN (Reason: shortness of breath or wheezing) Qty: 6.7 0RF Referrals: Alexandra Selby PA-C [Primary Care Provider] - In 1 week Problem List Clinical Impression: Acute exacerbation of chronic obstructive airways disease Patient/Caregiver Discharge Instructions Education Materials: COPD: Coping with Mucus, Breathing Controlled Dc Additional Instructions: Today you were checked for pneumonia and common respiratory illnesses. Chest X-ray looked good and did not show any evidence of pneumonia. COVID and influenza test results were negative. You were given a breathing treatment by the respiratory therapist. You have been prescribed a 5-day course of an anti-inflammatory antibiotic called azithromycin. Please take 2 pills on the first day followed by 1 pill for the next 4 days. Please follow up with your regular doctor and specialists. Please return to the ED if symptoms worsen. Print Language: Vietnamese Stand Alone Forms: [employer] Award Info., Patient Portal Info Letter
[2024-06-10 09:24] VITALS: BMI 21.0
[2024-06-10 09:28] VITALS: BP 137/104; PULSE 94; RESP 20; TEMP 36.6; O2SAT 96
--- NOTE | 2024-06-10 10:07 | PC.NURSE ---
[employer] went in to room to take vitals and pt torn off O2 pulse reader and refused vitals started yelling and swearing at staff
[2024-06-10 10:10] VITALS: PULSE 71
[2024-06-10] MEDS: ALBUTEROL RT 2.5 MG/0.5 ML NEBU 10 MG INH (10:10)
[2024-06-10] MEDS: IPRATROPIUM RT 0.5 MG/ 2.5 ML NEBU 1 MG INH (10:10)
[2024-06-10 10:16] VITALS: PULSE 72; RESP 18; O2SAT 97
[2024-06-10 10:20] VITALS: BP 106/62; PULSE 67; RESP 15; O2SAT 100
[2024-06-10 10:25] LABS: Basophils # (Auto) 0.1 Thou/mm3 (0.0-0.2); Basophils % (Auto) 1 % (0-2.5); Eosinophils # (Auto) 0.1 Thou/mm3 (0.0-0.5); Eosinophils % (Auto) 1 % (0-10); Hematocrit 33.4 % (41.0-53.0); Hemoglobin 11.1 g/dL (13.5-16.0); Immature Granulocytes % (Auto) 1 % (0-0); Immature Granulocytes Auto 0.05 Thou/mm3 (0.00-0.00); Lymphocytes # (Auto) 0.9 Thou/mm3 (1.0-4.8); Lymphocytes % (Auto) 11 % (10-50); Mean Corpuscular HGB Conc 33.2 g/dl (31.0-37.0); Mean Corpuscular Hemoglobin 31.5 pg (25.0-35.0); Mean Corpuscular Volume 95 fL (80-100); Monocytes # (Auto) 1.3 Thou/mm3 (0.0-0.8); Monocytes % (Auto) 14 % (0-12); Neutrophils # (Auto) 6.4 Thou/mm3 (1.8-7.7); Neutrophils % (Auto) 73 % (37-80); Nucleated Red Blood Cell % 0 /100 WBC (0); Platelet Count 277 Thou/mm3 (140-440); RDW Standard Deviation 47.3 fL (35.1-43.9); Red Blood Count 3.52 Miln/mm3 (4.50-5.90); White Blood Count 8.8 Thou/mm3 (3.8-10.6)
[2024-06-10 10:38] LABS: B-Type Natriuretic Peptide 113 pg/mL (0-100)
[2024-06-10 10:39] LABS: Alanine Aminotransferase 11 U/L (10-49); Albumin/Globulin Ratio 1.1 (1.2-2.2); Alkaline Phosphatase 126 U/L (46-116); Anion Gap 8 (7-16); Aspartate Amino Transferase 29 U/L (0-34); BUN/Creatinine Ratio 19 Ratio (12-20); Bilirubin,Total 0.7 mg/dL (0.3-1.2); Blood Urea Nitrogen 19 mg/dL (9-23); Calcium 9.8 mg/dL (8.3-10.6); Calcium (Corrected) 9.8 mg/dL (8.5-10.1); Carbon Dioxide 23.3 mMol/L (20.0-31.0); Chloride 101 mMol/L (98-107); Estimated Creatinine Clearance 48.5 mL/min (>60); Globulin 3.5 gm/dL (2.3-3.5); Glucose 90 mg/dL (74-106); Osmolality,Calculated 266 (275-295); Potassium 3.9 mMol/L (3.4-5.1); Sodium 132 mMol/L (136-145); Total Protein 7.5 gm/dL (5.7-8.2); Troponin I < 0.002 ng/mL (0.0-0.045); eGFR > 60 See Note
[2024-06-10 11:19] VITALS: BP 108/64; PULSE 70; RESP 16; TEMP 36.7; O2SAT 100
== END 2024-06-10 11:23 | disposition home or self-care (01) ==
PROVIDERS: Student in an Organized Health Care Education/Training Program; Emergency Provider Emergency Medicine; PCP Physician Assistant
DX: J44.1 Chronic obstructive pulmonary disease with (acute) exacerbation (principal); Z21 Asymptomatic human immunodeficiency virus [HIV] infection status; Z85.21 Personal history of malignant neoplasm of larynx; Z92.3 Personal history of irradiation; Z87.891 Personal history of nicotine dependence; Z93.0 Tracheostomy status; Z90.5 Acquired absence of kidney
CPT/HCPCS: 36415; 71045; 80053; 83880; 84484; 85025; 87040; 87205; 87400; 87811; 94644; 99283

== ENCOUNTER 2024-06-17 09:06 | Emergency (ER) | payer OTHER, MEDICAID, SELFPAY ==
[2024-06-17 09:07] VITALS: BMI 22.6
[2024-06-17 09:29] VITALS: BP 109/45; PULSE 83; RESP 18; TEMP 37.3; O2SAT 99
--- NOTE | 2024-06-17 09:43 | PD.EDNECK ---
ED Neck Injury Pain RME/HPI General Chief Complaint: Neck Pain/Injury Stated Complaint: NECK SWELLING; PT HAS TRACH. Time Seen by Provider: 06/17/24 09:17 Arrival date/time: 06/17/24 09:06 RME / HPI RME / HPI Narrative: 74 year old male with history of HIV on HAART therapy, laryngeal cancer s/p chemo and radiation (last treatments received 12/2023), s/p tracheostomy presents to the ED for evaluation of neck swelling beginning 1 week ago. Accompanied by pain with swallowing beginning 4 days ago. Denies fevers, chills, or other associated symptoms. Related Data Home Medications ?Medication ?Instructions ?Recorded ?Confirmed tamsulosin 0.4 mg capsule (Flomax) 0.4 mg PO DAILY ##0 02/16/10 06/17/24 cholecalciferol (vitamin D3) 50 50 mcg PO QDAY 11/01/23 06/17/24 mcg (2,000 unit) capsule (Vitamin D3) ferrous sulfate 325 mg (65 mg 325 mg PO QDAY 11/01/23 06/17/24 iron) tablet bictegravir 50 mg-emtricitabine 1 tab PO QDAY 11/30/23 06/17/24 200 mg-tenofovir alafenam 25 mg tablet (Biktarvy) cetirizine 10 mg tablet 10 mg PO BID 01/23/24 06/17/24 ondansetron HCl 8 mg tablet 8 mg PO TID 01/23/24 06/17/24 polyethylene glycol 3350 17 17 g feeding tube 1XD 01/23/24 06/17/24 gram/dose oral powder prochlorperazine maleate 10 mg 10 mg feeding tube TID 01/23/24 06/17/24 tablet triamcinolone acetonide 0.1 % 1 applic topical PRN PRN 01/23/24 06/17/24 topical cream (Triderm) Breakthrough Pain, Severe sulfamethoxazole 800 See Rx Instructions PO .COMPLEX 06/17/24 06/17/24 mg-trimethoprim 160 mg tablet Previous Rx's ?Medication ?Instructions ?Recorded fluconazole 200 mg tablet 400 mg (2 x 200 mg) PO QDAY 30 02/02/24 days #60 tabs lidocaine HCl 2 % mucosal solution 10 ml PO TIDWM 30 days #900 mL 02/02/24 albuterol sulfate 90 mcg/actuation 1 puff inhalation QID PRN 02/11/24 aerosol inhaler shortness of breath or wheezing #6.7 grams azithromycin 250 mg tablet See Rx Instructions PO .COMPLEX 06/10/24 (Zithromax Z-Massimo) COPD exacerbation #6 tabs cephalexin 500 mg capsule 500 mg PO BID 10 days #20 caps 06/17/24 Allergies Allergy/AdvReac Type Severity Reaction Status Date / Time No Known Allergies Allergy Verified 06/17/24 09:11 Review of Systems Review of Systems Narrative Review of Systems: GEN: No fever, no chills, no weight loss EYES: No discharge, no visual changes, no pain HEENT: +neck swelling with painful swallowing. No ear pain, no congestion PULM: No shortness of breath, no cough, no congestion CV: No chest pain, no dyspnea on exertion, no palpitations GI: No nausea, no vomiting, no diarrhea, no pain, no constipation : No frequency, no urgency and no dysuria MUSC/SKEL No joint pain, no back pain SKIN: No rash NEURO: No weakness, no headache Past Medical History Past Medical History CARDIAC: Positive Hypertension RESPIRATORY: Positive Asthma GENITOURINARY: Positive Renal Disease OTHER HISTORY: Positive Hospitalization, Falls, Blood Transfusions, Chemotherapy, Radiation Therapy and Cancer (throat cancer) Surgical History SURGICAL: Positive Throat Surgery (cancer), Tracheostomy (12/22) and Nephrectomy Social History SMOKING STATUS: Never smoker SECOND HAND EXPOSURE: No ED Exam Narrative Physical exam: GENERAL APPEARANCE: Well hydrated, well nourished, in no acute distress. VITALS: All vitals were reviewed and the pulse ox is 99% on room air which is normal according to my interpretation. HEENT: Normocephalic, atramatic, EOMI, EACs are patent. There is no bulge or retraction. Throat without erythema or exudate. Moist oromucosa. No jaundice NECK: Supple, no JVD or bruits. There is left sided soft tissue neck swelling, no signs of abscess, no fluctuance. Occasionally coughing phlegm through tracheostomy. CARDIOVASCULAR: Heart regular without S3-S4 or murmur. No rubs or gallops. LUNGS/CHEST: Clear to auscultation bilaterally. No rales, rhonchi, or wheezing. Normal inspection. ABDOMEN: Soft, dressing from previous PEG tube removal in the left upper quadrant, nontender, with normal bowel sounds. No pulsatile masses. No rebound, rigidity, or guarding. No incarcerated hernia. EXTREMITIES: Normal inspection and palpation. No edema, clubbing, or cyanosis. Intact CSM SKIN: Warm and dry without rashes. Normal inspection. MUSCULOSKELETAL: Normal inspection. No gross deformity, full ROM all extremities NEURO: Alert and oriented x3. Cranial nerves II through XII grossly intact. There are no other motor or sensory deficits noted. PSYCHIATRIC: Normal mood and affect. No psychosis Course Quality Measures none Orders Category Date Time Status CT Screening NOW Care 06/17/24 09:55 Completed Saline [Insert IV] NOW Care 06/17/24 09:[address] soft tissue neck w con Stat Exams 06/17/24 09:55 Completed CBC Stat Lab 06/17/24 10:00 Completed CMP [Comprehensive Metabolic Panel] Stat Lab 06/17/24 10:00 Completed cefTRIAXone [Rocephin] 1,000 mg Med 06/17/24 10:01 Discontinued Sodium Chloride 0.9% (P) [Ns 0.9% (P)] 50 ml IV X1 Vital Signs Vital signs: Vital Signs Temperature 99.2 F 06/17/24 09:29 Pulse Rate 83 06/17/24 09:29 Respiratory Rate 18 06/17/24 09:29 Blood Pressure 109/45 L 06/17/24 09:29 Pulse Oximetry (%) 99 06/17/24 09:29 Oxygen Delivery Method Room Air 06/17/24 09:29 Neck Pain MDM Narrative MDM Narrative:: IAlexsandra am scribing for and in the presence of Dr. Soliz. CBC unremarkable. CMP unremarkable. CT soft tissue neck was done and was read by Dr. Nain Echeverria. Please see his report below. The patient is breathing easily through the tracheostomy tube and it is functioning well. Lungs are clear full and equal. O2 saturation is normal 99% room air. He has no fever. And even though he has HIV positive, he is white blood cell count is normal. 1 PM, I spoke to and discussed with Dr. Gunnar Larson, the patient's radiation oncologist. He knows the patient well. He said that the patient family can contact his office tomorrow morning which is Monday to have an appointment set for Wednesday Thursday. The patient and daughters are informed and agreeable. In the meantime the patient is going home and I will put the patient on Keflex for possible cellulitis in the neck. I been noticing that he been scratching it quite a bit. There is no evidence of abscess however. Patient data External records reviewed:: [facility] previous records (I reviewed ED visit from 06/10/2024) Clinical information provided by:: patient and family (Daughter) Social determinants that could affect healthcare access:: none Patient has the following chronic illnesses:: HIV on HAART therapy, laryngeal cancer s/p chemo and radiation (last treatments received 12/2023), s/p tracheostomy How is presenting disease/condition affected by chronic disease/condition?: exacerbated by Evaluation data The following diagnostics were reviewed and interpreted by me:: lab results and radiology exam(s) Lab and/or radiology exams considered but not ordered:: None Interpretation Summary: Ordering Physician: Luis Armando Soliz MD Date of Service: 06/17/24 Procedure(s): CT soft tissue neck w con Accession Number(s): [id number] cc: Nain Echeverria MD; Luis Armando Soliz MD; Alexandra Selby PA-C~ Examination: CT soft tissue neck, with intravenous contrast. 2-D coronal reconstructions. 2-D sagittal reconstructions. Date and time of exam :June 17, 2024 1115 hrs. Comparison June 03, 2024 Indications: Left-sided neck swelling this week, diagnosis laryngeal cancer. CTDI: vol (mGy):9.46 DLP: (mGycm):211 Technique: 1.25 mm axial sections of the neck of the obtained. Coronal and sagittal reconstructions have been obtained. Intravenous contrast administered 50 cc Isovue-370. Low dose protocols were performed. One or more of the following dose reduction techniques were used; automated exposure control, adjustment of the mA and/or KV according to patient size, use of iterative reconstruction technique. Findings: Symmetrical nasopharynx Symmetrical oropharynx Soft tissue laryngeal mass obliterates the airway, axial image 36 involving both false and true vocal cords coronal image 35 Subcentimeter carotid triangle lymph nodes The patient's tracheostomy tube projects above the jasper, jasper is below the level of the films Thyroid lobes are not enlarged Mild diffuse edema in the subcutaneous fatty tissue lateral and below the mandible Impression: Soft tissue laryngeal mass obliterates the larynx Dictated By: Nain Echeverria MD Signed By: <Electronically signed by Nain Echeverria MD in OV> 06/17/24 1214 Medications / Prescriptions Medications or Prescriptions considered but not ordered:: None Medication administrations:: Medication Administration History Discontinued Medications Ceftriaxone Sodium 1,000 mg/ (Sodium Chloride) 50 mls @ 100 mls/hr IV X1 ONE Stop: 06/17/24 10:30 Last Infusion: 06/17/24 11:00 Dose: Infused Documented By: Admin: 06/17/24 10:28 Dose: 100 mls/hr Documented By: BD See above Consultations Consultation(s) initiated? (list below): Yes Consultation #1 (Physician, Specialty, Details): I spoke with oncologist Dr. Gunnar Larson. Discussed patients HPI, ED course, exam findings, lab results. Advised the patient call him tomorrow to schedule an appointment for Monday. Time: 11: Diagnosis Neck Differential Diagnosis: other (abscess, cancer, cellulitis ) Most likely diagnosis given after review of the tests above:: Cellulitis Laryngeal carcinoma Admission Indicated Admission indicated?: not indicated Admission Request Was there a request for admission?: No Disposition Plan Disposition Plan: Discharge Discharge Attestation Discharge Attestation: The patient and all family members were given an opportunity to ask questions and understood the discharge instructions. Discharge instructions specifically effects, indications for sooner follow up or return to the emergency department, and the expected course of current diagnosis. Patient condition: Stable Discharge Plan Plan Patient Disposition: HOME (Self Care) Disposition Comment: Stable for DC home Prescriptions/Referrals Prescriptions/Med Rec: New cephalexin 500 mg capsule 500 mg PO BID 10 Days Qty: 20 0RF No Action Biktarvy 50-200-25 mg tablet 1 tab PO QDAY tamsulosin [Flomax] 0.4 MG capsule,extended release 24hr 0.4 mg PO DAILY Qty: 0 ferrous sulfate 325 mg (65 mg iron) Tablet 325 mg PO QDAY cholecalciferol (vitamin D3) [Vitamin D3] 50 mcg (2,000 unit) Capsule 50 mcg PO QDAY cetirizine 10 mg tablet 10 mg PO BID Patient Comments: REEMA JAVON TABLETA POR V A ORAL DOS VECES AL D A ondansetron HCl 8 mg tablet 8 mg PO TID Patient Comments: TOME JAVON TABLETA POR V A ORAL BERNY VECES AL D A CUANDO SEA NECESARIO PARA NAUSEA prochlorperazine maleate 10 mg tablet 10 mg feeding tube TID triamcinolone acetonide [Triderm] 0.1 % cream 1 applic TOPICAL PRN PRN (Reason: Breakthrough Pain, Severe) Patient Comments: APLIQUE AL CHRISTO AFECTADA DOS VECES AL D A (NO EN EL MARISELA) polyethylene glycol 3350 17 gram/dose powder 17 g feeding tube 1XD Patient Comments: 17 GM IN LIQUID 1 TIME A DAY fluconazole 200 mg tablet 400 mg PO QDAY 30 Days Qty: 60 2RF lidocaine HCl 2 % Solution 10 ml PO TIDWM 30 Days Qty: 900 2RF albuterol sulfate 90 mcg/actuation HFA aerosol inhaler 1 puff inhalation QID PRN (Reason: shortness of breath or wheezing) Qty: 6.7 0RF azithromycin [Zithromax Z-Massimo] 250 mg tablet See Rx Instructions .ROUTE .COMPLEX Qty: 6 0RF Rx Instructions: For 250 mg dose pack: take 500 mg today (day 1), then 250 mg for 4 days (days 2-5) sulfamethoxazole-trimethoprim 800-160 mg tablet See Rx Instructions PO .COMPLEX Rx Instructions: orally MON,MON,MONDAY; Referrals: Alexandra Selby PA-C [Primary Care Provider] - In 1 week Problem List Clinical Impression: Cellulitis, Laryngeal carcinoma Patient/Caregiver Discharge Instructions Education Materials: ED Cellulitis Additional Instructions: Take Keflex as prescribed for possible cellulitis in the anterior neck. Follow-up with Dr. Gunnar Larson, your radiation oncologist for further care. He wants you or your daughter to call him tomorrow morning and make arrangement to see him by Monday or . Print Language: Romanian Stand Alone Forms: [facility]eni Award Info., Patient Portal Info Letter
--- NOTE | 2024-06-17 09:54 | PC.NURSE ---
Patient from lobby and taken to rm [address] with daughter at bedside. Dr[address] Soliz at bedside to assess patient, patient has trach in place open to air, 02 sats on RA 98%. Patient to er with c/o swelling to anterior left side of neck x 4 days, red, inflammed and swollen, warm to touch. Patient has h/o esophageal cancer and last pet scan was done in the beginning of this month per daughter. Per daughter states they have not yet received the results. New orders received from Dr. Soliz, call light within reach.
--- NOTE | 2024-06-17 09:55 | XR_ITS ---
Examination: CT soft tissue neck, with intravenous contrast. 2-D coronal reconstructions. 2-D sagittal reconstructions. Date and time of exam :June 17, 2024 1115 hrs. Comparison June 03, 2024 Indications: Left-sided neck swelling this week, diagnosis laryngeal cancer. CTDI: vol (mGy):9.46 DLP: (mGycm):211 Technique: 1.25 mm axial sections of the neck of the obtained. Coronal and sagittal reconstructions have been obtained. Intravenous contrast administered 50 cc Isovue-370. Low dose protocols were performed. One or more of the following dose reduction techniques were used; automated exposure control, adjustment of the mA and/or KV according to patient size, use of iterative reconstruction technique. Findings: Symmetrical nasopharynx Symmetrical oropharynx Soft tissue laryngeal mass obliterates the airway, axial image 36 involving both false and true vocal cords coronal image 35 Subcentimeter carotid triangle lymph nodes The patient's tracheostomy tube projects above the jasper, jasper is below the level of the films Thyroid lobes are not enlarged Mild diffuse edema in the subcutaneous fatty tissue lateral and below the mandible Impression: Soft tissue laryngeal mass obliterates the larynx
[2024-06-17 10:16] VITALS: BP 103/64; PULSE 70; RESP 17; TEMP 36.9; O2SAT 98
[2024-06-17] MEDS: cefTRIAXone 1,000 MG in SODIUM CHLORIDE 0.9% (P) 50 ML 100 MG IV (10:28)
[2024-06-17 10:43] LABS: Basophils # (Auto) 0.1 Thou/mm3 (0.0-0.2); Basophils % (Auto) 1 % (0-2.5); Eosinophils # (Auto) 0.3 Thou/mm3 (0.0-0.5); Eosinophils % (Auto) 4 % (0-10); Hematocrit 33.7 % (41.0-53.0); Hemoglobin 11.2 g/dL (13.5-16.0); Immature Granulocytes % (Auto) 0 % (0-0); Immature Granulocytes Auto 0.03 Thou/mm3 (0.00-0.00); Lymphocytes # (Auto) 1.2 Thou/mm3 (1.0-4.8); Lymphocytes % (Auto) 18 % (10-50); Mean Corpuscular HGB Conc 33.2 g/dl (31.0-37.0); Mean Corpuscular Hemoglobin 31.7 pg (25.0-35.0); Mean Corpuscular Volume 96 fL (80-100); Monocytes # (Auto) 0.9 Thou/mm3 (0.0-0.8); Monocytes % (Auto) 13 % (0-12); Neutrophils # (Auto) 4.6 Thou/mm3 (1.8-7.7); Neutrophils % (Auto) 65 % (37-80); Nucleated Red Blood Cell % 0 /100 WBC (0); Platelet Count 306 Thou/mm3 (140-440); RDW Standard Deviation 49.1 fL (35.1-43.9); Red Blood Count 3.53 Miln/mm3 (4.50-5.90); White Blood Count 7.1 Thou/mm3 (3.8-10.6)
[2024-06-17 11:05] LABS: Alanine Aminotransferase 13 U/L (10-49); Albumin, Serum 3.8 gm/dL (3.4-4.8); Albumin/Globulin Ratio 1.2 (1.2-2.2); Alkaline Phosphatase 121 U/L (46-116); Anion Gap 8 (7-16); Aspartate Amino Transferase 20 U/L (0-34); BUN/Creatinine Ratio 8 Ratio (12-20); Bilirubin,Total 0.3 mg/dL (0.3-1.2); Blood Urea Nitrogen 8 mg/dL (9-23); Calcium 9.4 mg/dL (8.3-10.6); Calcium (Corrected) 9.6 mg/dL (8.5-10.1); Carbon Dioxide 26.6 mMol/L (20.0-31.0); Chloride 103 mMol/L (98-107); Estimated Creatinine Clearance 59.1 mL/min (>60); Globulin 3.2 gm/dL (2.3-3.5); Glucose 98 mg/dL (74-106); Osmolality,Calculated 273 (275-295); Potassium 4.1 mMol/L (3.4-5.1); Sodium 138 mMol/L (136-145); eGFR > 60 See Note
--- NOTE | 2024-06-17 11:45 | PC.NURSE ---
pt wanting to eat advised we are waiting on ct exam
[2024-06-17 12:12] VITALS: BP 151/71; PULSE 62; RESP 19; TEMP 36.7; O2SAT 99
--- NOTE | 2024-06-17 12:13 | PC.NURSE ---
contacted ct they will contact radiologist to read exam
[2024-06-17 13:27] VITALS: BP 126/73; PULSE 60; RESP 13; TEMP 37; O2SAT 98
== END 2024-06-17 13:24 | disposition home or self-care (01) ==
PROVIDERS: Emergency Provider Emergency Medicine; PCP Physician Assistant
DX: L03.221 Cellulitis of neck (principal); C32.9 Malignant neoplasm of larynx, unspecified
CPT/HCPCS: 36415; 70491; 80053; 85025; 99285; A4649; J0696; J7050; Q9967

== ENCOUNTER 2024-06-19 09:27 | Outpatient (RCR) | payer OTHER, MEDICAID, SELFPAY ==
--- NOTE | 2024-06-19 11:21 | CTCFLWUP_ITS ---
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 Received 6600 cGy to the primary site along with concomitant Taxol carboplatin. Posttreatment PET scan 04/04/2024 showed improvement in the intensely hypermetabolic laryngeal mass, with non-hypermetabolic pulmonary nodules. Patient has history of cocci. Had CT of the neck chest June 03, 2024 revealing diffuse soft tissue mass involving true and false cords with severe impingement upon the airway. Patient has trach. 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 There was also an indeterminate left adrenal nodule. Patient went to the ER with complaints of neck swelling and had soft tissue neck CT 06/17/2024 revealing soft tissue mass obliterating the airway. Patient now here for follow-up. Patient feels that the neck feels tight and uncomfortable but fortunately has a trach which allows him to breathe. Told patient that he is likely recurring at least locally possibly even distantly with the CT scan chest showing possible met disease. A#1. History of stage III laryngeal CA chemoradiation completed 01/18/2024. A#2. Likely local recurrence possibly distant mets noted on CT scans earlier this month. #3. Is unsure about additional cancer therapy, but for now would like to consider all options. #4. MRI of the neck with contrast for better visualization of the likely recurrent site. #5. I will see him back in 2 months for follow-up and patient has follow-up with Dr. Shook as well. Electronically signed by: Gunnar Larson M.D. 06/19/2024 11:19 AM
== END 2024-06-28 23:59 | disposition home or self-care (01) ==
LOC: SCTC 09:27
PROVIDERS: PCP Physician Assistant; Referring Provider Physician Assistant; Visit Provider Radiology Therapeutic Radiology
DX: C32.8 Malignant neoplasm of overlapping sites of larynx (principal); Z92.3 Personal history of irradiation; Z92.21 Personal history of antineoplastic chemotherapy
CPT/HCPCS: 99213; G0463

== ENCOUNTER 2024-07-08 14:37 | Outpatient (RCR) | payer OTHER, MEDICAID, SELFPAY ==
[2024-07-05 12:09] LABS: Basophils % (Auto) 1 % (0-2.5); Eosinophils # (Auto) 0.1 Thou/mm3 (0.0-0.5); Eosinophils % (Auto) 2 % (0-10); Hematocrit 34.3 % (41.0-53.0); Hemoglobin 11.6 g/dL (13.5-16.0); Immature Granulocytes % (Auto) 0 % (0-0); Immature Granulocytes Auto 0.02 Thou/mm3 (0.00-0.00); Lymphocytes % (Auto) 14 % (10-50); Mean Corpuscular HGB Conc 33.8 g/dl (31.0-37.0); Mean Corpuscular Hemoglobin 31.7 pg (25.0-35.0); Mean Corpuscular Volume 94 fL (80-100); Monocytes # (Auto) 0.9 Thou/mm3 (0.0-0.8); Monocytes % (Auto) 13 % (0-12); Neutrophils # (Auto) 4.9 Thou/mm3 (1.8-7.7); Neutrophils % (Auto) 71 % (37-80); Nucleated Red Blood Cell % 0 /100 WBC (0); Platelet Count 318 Thou/mm3 (140-440); RDW Standard Deviation 46.8 fL (35.1-43.9); Red Blood Count 3.66 Miln/mm3 (4.50-5.90)
[2024-07-05 12:10] LABS: Immature Reticulocyte Fraction 6.8 % (2.3-13.4); Reticulocyte % (Auto) 1.1 % (0.5-1.5); Reticulocyte Absolute Auto 38.3 Biln/L (25.0-75.0); Reticulocyte Hgb Content 36.7 pg (28.0-35.0)
[2024-07-05 12:42] LABS: Ferritin 332 ng/mL (10.5-307.3); Iron 39 mcg/dL (65-175); Percent Iron Saturation 14 % (20-55); Total Iron Binding Capacity 277 mcg/dL (250-425); Unsaturated Iron Binding 238 (225-295)
[2024-07-05 12:43] LABS: Folate 21.89 ng/mL (>5.38); Free T3 2.3 pg/mL (2.3-4.2); Vitamin B12 606 pg/mL (211-911)
[2024-07-05 12:44] LABS: Alanine Aminotransferase 10 U/L (10-49); Albumin/Globulin Ratio 1.2 (1.2-2.2); Alkaline Phosphatase 128 U/L (46-116); Anion Gap 8 (7-16); Aspartate Amino Transferase 22 U/L (0-34); BUN/Creatinine Ratio 13 Ratio (12-20); Bilirubin,Total 0.3 mg/dL (0.3-1.2); Blood Urea Nitrogen 16 mg/dL (9-23); Calcium 9.6 mg/dL (8.3-10.6); Calcium (Corrected) 9.6 mg/dL (8.5-10.1); Carbon Dioxide 23.8 mMol/L (20.0-31.0); Chloride 103 mMol/L (98-107); Creatinine (Component) 1.2 mg/dL (0.6-1.3); Globulin 3.4 gm/dL (2.3-3.5); Glucose 90 mg/dL (74-106); Osmolality,Calculated 271 (275-295); Potassium 3.7 mMol/L (3.4-5.1); Sodium 135 mMol/L (136-145); Thyroid Stimulating Hormone 5.14 uIU/mL (0.55-4.78); Total Protein 7.4 gm/dL (5.7-8.2); eGFR > 60 See Note
--- NOTE | 2024-07-22 00:09 | CTCFLWUP_ITS ---
Patient: ROSENDO GARCIA : 1950 Page 7 of 8 FOLLOW UP NOTE DATE OF SERVICE: 07/08/2024 NAME: ROSENDO GARCIA ACCOUNT: [id number] : 1950 AGE: 74 INTERVAL HISTORY: Rosendo Garcia is a 74-year-old SPA speaking male with enlarged prostate has the following oncology history. Patient had a left nephrectomy done about 14 years ago at [facility] for kidney cancer. 09/20/2023:: A CT scan of the chest without contrast was obtained to evaluate the cause for coughing a few months duration. Patient has history of 40 pack year smoking. 09/29/2023: Mr. Garcia was seen here at [facility] emergency room because of shortness of breath and difficulty swallowing of few days duration. a CT scan of the soft tissue of the neck with contrast was obtained was obtained CT scan of the neck showed a large soft tissue laryngeal mass Mr. Garcia was transferred to [facility] due to lack of ENT services here in [place]. 09/29/2023: Mr. Garcia had an awake tracheostomy and direct laryngoscopy with biopsies. During the hospital stay at [facility] patient had Chemo-Port placed as well as a PEG tube placement in anticipation of chemoradiation therapy. HIV test was done. It came back positive. 10/07/2023: CT scan of the neck and chest abdomen pelvis 11/06/2023: Cocci serology positive. 11/12/2023: Mr. Garcia is started on Diflucan 11/16/2023: PET/CT scan 11/21/2023: Mr. Garcia is started on antiretroviral therapy with Biktarvy. 12/04/2023: Mr. 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 Currently on chemoradiation with Taxol and carboplatin as chemo sensitizing agents (12/04/2023??) S/p tracheostomy placement, PEG tube as well as Chemo-Port placement. 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 13-cbyu-prit smoking history BPH. Newly identified HIV positivity. Started on antiretroviral therapy on 11/21/2023 Left nephrectomy for renal cell carcinoma 14 years ago at [facility]. Serum creatinine 0.9, EGFR more than 60, creatinine clearance 62.7 on 11/06/2023. DATE OF DIAGNOSIS: 09/30/2023 STAGE/TNM: Stage 2 ?T2NOMO TREATMENT HISTORY: Care?Plan Start?Date Cycle Day Intent CISplatin?40?mg/m*2?+?Radiation?Therapy?-?Primary,?Adj,?Rec?#2 10/30/2023 1 7 Palliative Taxol?Carbo?wkly?with?xrt 12/04/2023 1 7 Curative?(primary) HISTORY OF PRESENT ILLNESS: Rosendo Garcia is a 73-year-old S[place] speaking male with enlarged prostate has the following oncology history. Patient had a left nephrectomy done about 14 years ago at [facility] for kidney cancer. 09/20/2023:: A CT scan of the chest without contrast was obtained to evaluate the cause for coughing a few months duration. Patient has history of 40 pack year smoking.09/29/2023: Mr. Garcia was seen here at [facility] emergency room because of shortness of breath and difficulty swallowing of few days duration. a CT scan of the soft tissue of the neck with contrast was obtained was obtained CT scan of the neck showed a large soft tissue laryngeal massMr. Garcia was transferred to [facility] due to lack of ENT services here in [place]. 09/29/2023: Mr. Garcia had an awake tracheostomy and direct laryngoscopy with biopsies.During the hospital stay at [facility] patient had Chemo-Port placed as well as a PEG tube placement in anticipation of chemoradiation therapy. HIV test was done. It came back positive.11/21/2023: Mr. Garcia is started on antiretroviral therapy with Biktarvy. 12/04/2023: Mr. Garcia is started on chemoradiation with weekly carboplatin and Taxol as a radiosensitizing agent And completed concurrent chemoradiation on 01/18/2024. Patient received carboplatin and Taxol along with radiation 6600 Gy OTHER MEDICAL HISTORY/CONDITIONS: SCC larynx - dx 09/30/23 RCC - dx 10 yrs ago HIV Positive Anemia BPH Depression Tracheostomy - 09/30/23 PEG tube placement and PC placemen 10/07/23t Left nephrectomy - 10 yrs ago Repair right tibia/fibula fx - 30 yrs ago FAMILY HISTORY: Cancer?History:?Denies Patient?denies?family?cancer?history. 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 albuterol sulfate - 90 mcg/actuation 2 Puff(s) Every 6 Hours 2. xyylqzoau-qsxofmmg-uxpeeon ala - 50-200-25 mg 1 tab Daily 3. Biktarvy - 50-200-25 mg 1 tab Daily 4. Centrum Men - 8 mg iron- 200 mcg-600 mcg 1 tab Daily 5. doxazosin - 2 mg Twice a Day 6. fluconazole - 200 mg 2 tab Daily 7. levocetirizine dihydrochloride - 5 mg Daily 8. Lidocaine Viscous - 2 % 10 mL every 4-6 hrs as needed 9. tramadol - 50 mg Four times a day 10. Vitamin D3 - 2,000 unit 1 Capsule Daily Medications Last Reconciled by Janel Coppola MA on 07/08/2024 ALLERGIES: No Known Drug Allergies REVIEW OF SYSTEMS: A complete 14-point review of systems was performed and is negative except as noted in interval history. PHYSICAL EXAMINATION: VITAL SIGNS: Temperature?100, B/P?125/72, Oxygen?Saturation?97% Weight?136?lbs (Change?since?07/05/24:?0.2?lbs) PAIN: 2 - Mild pain ECOG Performance Status: 2 - Symptomatic; ambulatory; capable of self-care; >50% of waking hrs. not in bed EYE: Conjunctivae is white MOUTH: Oral cavity is moist. I could not see mass Tracheostomy in place. Patient also has PEG tube and Chemo-Port. CHEST: Clear to auscultation. No wheezes or rales audible. CARDIAC: Rhythm regular, no murmurs or gallops present. ABDOMEN: Soft. No hepatomegaly. No splenomegaly. EXTREMITIES: No pedal edema or cyanosis. LABORATORY DATA: I have personally reviewed and interpreted each of the patient?s relevant lab tests, abnormal findings are below: Date 07/05/24 ??WHITE?BLOOD?COUNT?(Thou/mm3) 7.0 ??RED?BLOOD?COUNT?(Miln/mm3) 3.66?L ??HEMOGLOBIN?(gm/dl) 11.6?L ??HEMATOCRIT?(%) 34.3?L ??PLATELET?COUNT?(Thou/mm3) 318 ??NEUTROPHILS?%,?AUTO?(%) 71 ??LYMPH?%,?AUTO?(%) 14 ??NEUTROPHILS,?AUTO?(Thou/mm3) 4.9 ??GLUCOSE,RANDOM?(mg/dL) 90 ??BLOOD?UREA?NITROGEN?(mg/dL) 16 ??CREATININE?(mg/dL) 1.20 ??SODIUM?(mmol/L) 135?L ??POTASSIUM?(mmol/L) 3.7 ??CHLORIDE?(mmol/L) 103 ??CrCl?(CandG)?(ml/min) 47.77 ??AST/SGOT?(Unit/L) 22 ??ALT/SGPT?(Unit/L) 10 ??ALKALINE?PHOSPHATASE?(Unit/L) 128?H ??BILIRUBIN,?TOTAL?(mg/dL) 0.3 ??PROTEIN?TOTAL?(gm/dl) 7.4 ??ALBUMIN,?SERUM?(gm/dl) 4.0 ??GLOBULIN?(gm/dl) 3.4 ??ALBUMIN/GLOBULIN?RATIO 1.2 ??CALCIUM,?SERUM?(mg/dL) 9.6 ??CALCIUM?SERUM?(CORRECTED)?(mg/dL) 9.6 ??RETICULOCYTE?ABSOLUTE?AUTO?(Biln/L) 38.3 ??TOTAL?IRON?BINDING?CAP?(S*)?(mcg/dL) 277 ??UNBOUND?IBC?(mcg/dL) 238 ASSESSMENT/PLAN: #1 stage lll'lT3, ND, ND?) squamous cell carcinoma ofthe larynx ([id number]). Patient was treated with concurrent chemoradiation completed on 01/18/[address] scan is concerning for progression of cancer Biopsy to confirm recurrence Patient need for scanning including MRI brain to evaluate mets. Patient also has risk for lung cancer so we will do PET CT scan and MRI and biopsy to confirm patient's primary This is likely metastatic disease and will be treated with chemotherapy alone in palliative care setting #2pulmonary coccidiomycosis currently on Di?ucan started on 11/12/2023. Being followed by primary care physician #3 QuantiFERON gold plus TB test negative #4 24-cqnf-uvmr smoking history #5 BPH. #6 HIV on Phelan therapy. Started on Biktarvy on 11/21/2023. Being followed by primary care physician. #7 left nephrectomy for renal cell carcinoma 14 years ago at [facility]. ORDERS: Order # Description [id number] Initial PET/CT of Skull to Mid-Thigh [id number] MRI + Brain + With Contrast [id number] Comprehensive Metabolic Panel - 12 + CBC with Auto Diff [id number] Foundation One Liquid CDX [id number] ? [id number] CT Scan + Neck + Chest [id number] Comprehensive Metabolic Panel - 12 + CBC with Auto Diff + MD Follow Up 3 Months [id number] Thyroid Stimulating Hormone + Assay Triiodothyronine (T3) [id number] Vitamin B-12 + Ferritin + Iron Panel + Reticulocyte Count + Folic Acid; Serum RETURN TO CLINIC: Within 2 weeks with the biopsy results. Patient do not need all the staging results back for return visit BILLING AND COMPLIANCE: I reviewed external records from providers outside my specialty as summarized above. I spent a total of 50 minutes on this patient?s care on the day of their visit excluding time spent related to any billed procedures. This time includes time spent with the patient as well as time spent documenting in the medical record, reviewing patients records and tests, obtaining history, placing orders, communicating with other healthcare professionals, counseling the patient, family or caregiver, and/or care coordination for the diagnoses above. Electronically Signed by: {Object.Sanct_ID*PnP.NameFL@M}, {Object.Sanct_ID*PnP.Suffix@U} D: {Object.Sanct_Date} T: {Object.Sanct_Time} CC: PCP: Alexandra Selby Referring: Alexandra Selby This document was completed utilizing speech recognition software. Grammatical errors, random word insertions, pronoun errors, and incomplete sentences are an occasional consequence of this system due to software limitations, ambient noise, and hardware issues. Any formal questions or concerns about the content, text or information contained within the body of this dictation should be directly addressed to the provider for clarification.
== END 2024-07-29 23:59 | disposition home or self-care (01) ==
LOC: SCTC 14:37
PROVIDERS: PCP Physician Assistant; Referring Provider Physician Assistant; Visit Provider Internal Medicine Hematology & Oncology
DX: C32.8 Malignant neoplasm of overlapping sites of larynx (principal); Z92.3 Personal history of irradiation; Z87.891 Personal history of nicotine dependence; N40.0 Benign prostatic hyperplasia without lower urinary tract symptoms; Z21 Asymptomatic human immunodeficiency virus [HIV] infection status; Z79.899 Other long term (current) drug therapy; Z85.528 Personal history of other malignant neoplasm of kidney; Z90.5 Acquired absence of kidney
CPT/HCPCS: 36591; 80053; 82607; 82728; 82746; 83540; 83550; 84443; 84481; 85025; 85046; 99212; A4216; J1642; G0463

== ENCOUNTER 2024-07-18 06:33 | Emergency (ER) | payer OTHER, MEDICAID, SELFPAY ==
--- NOTE | 2024-07-18 06:39 | PC.NURSE ---
PT GOT TO ROOM 3, DR. LIPSCOMB IN ROOM , PT NO PULSE AND ASYSTOLE, DR. LIPSCOMB CALLED IT AND PRONOUNCED PT AT 0633.
--- NOTE | 2024-07-18 06:45 | PC.NURSE ---
CALLED [facility] AND INFORMED ABOUT PT .
--- NOTE | 2024-07-18 06:46 | PD.EDADULT ---
ED General RME/HPI General Chief complaint: Cardiac Arrest/CPR Stated complaint: PABLO YUEN Arrival date/time: 07/18/24 06:33 RME / HPI RME / HPI narrative: 74 y/o male with trach was last seen midnight alive prior to sleep. Family to wake him and was not responsive and EMS called. [place] on EMS arrival. Epi x2 enroute. Family conference after: he was otherwise well. History of trach, pas peg tube. Routine checkup with PMD 2 days ago was unremarkable. They confirm he went to sleep around midnight without issue or complaints. His friend got up and found him on the floor in the bedroom between the bed and to his oxygen tubing. He did not require requesting the oxygen throughout yesterday. Related Data Home Medications ?Medication ?Instructions ?Recorded ?Confirmed tamsulosin 0.4 mg capsule (Flomax) 0.4 mg PO DAILY ##0 02/16/10 06/17/24 cholecalciferol (vitamin D3) 50 50 mcg PO QDAY 11/01/23 06/17/24 mcg (2,000 unit) capsule (Vitamin D3) ferrous sulfate 325 mg (65 mg 325 mg PO QDAY 11/01/23 06/17/24 iron) tablet bictegravir 50 mg-emtricitabine 1 tab PO QDAY 11/30/23 06/17/24 200 mg-tenofovir alafenam 25 mg tablet (Biktarvy) cetirizine 10 mg tablet 10 mg PO BID 01/23/24 06/17/24 ondansetron HCl 8 mg tablet 8 mg PO TID 01/23/24 06/17/24 polyethylene glycol 3350 17 17 g feeding tube 1XD 01/23/24 06/17/24 gram/dose oral powder prochlorperazine maleate 10 mg 10 mg feeding tube TID 01/23/24 06/17/24 tablet triamcinolone acetonide 0.1 % 1 applic topical PRN PRN 01/23/24 06/17/24 topical cream (Triderm) Breakthrough Pain, Severe sulfamethoxazole 800 See Rx Instructions PO .COMPLEX 06/17/24 06/17/24 mg-trimethoprim 160 mg tablet Previous Rx's ?Medication ?Instructions ?Recorded fluconazole 200 mg tablet 400 mg (2 x 200 mg) PO QDAY 30 02/02/24 days #60 tabs lidocaine HCl 2 % mucosal solution 10 ml PO TIDWM 30 days #900 mL 02/02/24 albuterol sulfate 90 mcg/actuation 1 puff inhalation QID PRN 02/11/24 aerosol inhaler shortness of breath or wheezing #6.7 grams azithromycin 250 mg tablet See Rx Instructions PO .COMPLEX 06/10/24 (Zithromax Z-Massimo) COPD exacerbation #6 tabs Allergies Allergy/AdvReac Type Severity Reaction Status Date / Time No Known Allergies Allergy Verified 06/17/24 09:11 Review of Systems Review of Systems ROS Unobtainable: unobtainable due to medical condition ED Exam Narrative Physical exam: general: elderaly chronically ill-appearing with trach, back, chest compressions in place. Early onset rigor of the jaw. Asystole on monitor No pulses Course Quality Measures none MDM Patient data External records reviewed:: EMS form Clinical information provided by:: EMS and family Social determinants that could affect healthcare access:: none Patient has the following chronic illnesses:: HIV How is presenting disease/condition affected by chronic disease/condition?: exacerbated by Evaluation data The following diagnostics were reviewed and interpreted by me:: other (specify) (DOA) Lab and/or radiology exams considered but not ordered:: DOA Interpretation Summary: DOA Medications Medications considered but not ordered:: DOA Medication administrations:: DOA Consultations Consultation(s) initiated? (list below): No Diagnosis Differential Diagnosis ED Complaint MDM: PE, cardiopulmonary arrest, AMI, pneumonia Most likely diagnosis given after review of the tests above:: cardiopulmonary arrest Admission Indicated Admission indicated?: not indicated Explain why admission is indicated or not indicated:: DOA Admission Request Was there a request for admission?: No Disposition Plan Disposition Plan: other (specify) ([place]) Medical Decision Making MDM Narrative MDM Narrative: Mr. Ashley presents to the emergency department lasting a life at around midnight. He was found in the morning asystole. On arrival to the emergency department he was early-onset rigor his jaw. Patient is on arrival following further ACLS protocol is not indicated. Differential Diagnosis Differential Diagnosis: PE, cardiopulmonary arrest, AMI, pneumonia Discharge Plan Plan Patient Disposition: Prescriptions/Referrals Prescriptions/Med Rec: No Action Biktarvy 50-200-25 mg tablet 1 tab PO QDAY tamsulosin [Flomax] 0.4 MG capsule,extended release 24hr 0.4 mg PO DAILY Qty: 0 ferrous sulfate 325 mg (65 mg iron) Tablet 325 mg PO QDAY cholecalciferol (vitamin D3) [Vitamin D3] 50 mcg (2,000 unit) Capsule 50 mcg PO QDAY cetirizine 10 mg tablet 10 mg PO BID Patient Comments: TOME JAVON TABLETA POR V A ORAL DOS VECES AL D A ondansetron HCl 8 mg tablet 8 mg PO TID Patient Comments: TOME JAVON TABLETA POR V A ORAL BERNY VECES AL D A CUANDO SEA NECESARIO PARA NAUSEA prochlorperazine maleate 10 mg tablet 10 mg feeding tube TID triamcinolone acetonide [Triderm] 0.1 % cream 1 applic TOPICAL PRN PRN (Reason: Breakthrough Pain, Severe) Patient Comments: APLIQUE AL CHRISTO AFECTADA DOS VECES AL D A (NO EN EL MARISELA) polyethylene glycol 3350 17 gram/dose powder 17 g feeding tube 1XD Patient Comments: 17 GM IN LIQUID 1 TIME A DAY fluconazole 200 mg tablet 400 mg PO QDAY 30 Days Qty: 60 2RF lidocaine HCl 2 % Solution 10 ml PO TIDWM 30 Days Qty: 900 2RF albuterol sulfate 90 mcg/actuation HFA aerosol inhaler 1 puff inhalation QID PRN (Reason: shortness of breath or wheezing) Qty: 6.7 0RF azithromycin [Zithromax Z-Massimo] 250 mg tablet See Rx Instructions .ROUTE .COMPLEX Qty: 6 0RF Rx Instructions: For 250 mg dose pack: take 500 mg today (day 1), then 250 mg for 4 days (days 2-5) sulfamethoxazole-trimethoprim 800-160 mg tablet See Rx Instructions PO .COMPLEX Rx Instructions: orally MON,MON,MONDAY; Referrals: Alexandra Selby PA-C [Primary Care Provider] - In 1 week Problem List Clinical Impression: Cardiac arrest Patient/Caregiver Discharge Instructions Print Language: Greek
--- NOTE | 2024-07-18 06:49 | PC.NURSE ---
CALLED [employer] AND INFORMED THEM ABOUT PT .
== END 2024-07-18 10:00 | disposition expired ==
PROVIDERS: Emergency Provider Emergency Medicine; PCP Physician Assistant
DX: I46.9 Cardiac arrest, cause unspecified (principal)
CPT/HCPCS: 99285